=== PATIENT | female | born 1965 | race Caucasian/White ===

== ENCOUNTER 2016-10-27 11:12 | Outpatient (CLI) | payer OTHER | END 2016-10-27 19:30 | disposition home or self-care (01) | LOC: SMA 11:12 | PROVIDERS: ATTEND Family Medicine | DX: Z12.31 Encounter for screening mammogram for malignant neoplasm of breast (principal) | CPT/HCPCS: 77067; G0202 ==

== ENCOUNTER 2018-11-24 10:18 | Outpatient (CLI) | payer OTHER | END 2018-11-24 21:19 | disposition home or self-care (01) | LOC: SMA 10:18 | PROVIDERS: ATTEND Family Medicine | DX: Z12.31 Encounter for screening mammogram for malignant neoplasm of breast (principal) | CPT/HCPCS: 77067 ==